=== PATIENT | male | born 1955 | race Caucasian/White ===

== ENCOUNTER 2024-05-16 12:09 | Inpatient (IN) | payer MEDICARE, MEDICAID, SELFPAY ==
[2024-05-16 12:10] VITALS: BMI 23.6
[2024-05-16 12:23] VITALS: BP 176/108; PULSE 112; RESP 19; TEMP 36.6; O2SAT 96
--- NOTE | 2024-05-16 12:23 | XR_ITS ---
EXAMINATION: XR foot comp LT min 3V ORDERING PROVIDER: ERICH Oneill HISTORY: Left foot pain for 18 months TECHNIQUE: 3 radiographs of the left foot were obtained. COMPARISON: 01/12/2024, left foot radiographs. FINDINGS: No acute fracture or dislocation. Soft tissue swelling about the great toe, likely with small amount of subcutaneous emphysema and edema around the forefoot. Punctate densities projecting over the medial forefoot, which may or may not be external to the patient, but at least some of which appear to display off the foot an oblique imaging. There are [id number] degenerative changes in an osteoarthritic pattern. Subtle Monckeberg calcifications are present. There is diffuse bony demineralization, which has increased about the great toe interphalangeal joint. IMPRESSION: Soft tissue swelling centered about the great toe and forefoot, with some questionable areas of subcutaneous emphysema. Worsening demineralization of the great toe at the interphalangeal joint is seen which can be seen with osteomyelitis. Recommend correlation with bone scan versus MR. Punctate densities about the medial mid to forefoot, which may represent radiopaque foreign objects and/or be external to the patient. Given oblique view, favor the latter, though clinical correlation is recommended.
--- NOTE | 2024-05-16 12:24 | EDRME_ITS ---
Rapid Medical Screening Exam [facility] Arrival date/time: 05/16/24 12:09 68-year-old male with no known medical history presents to the emergency room with a chief complaint of a wound to his left great toe that has been going on for the last 3 months. Patient states the wound has progressively gotten worse and his toe is now black and has a foul smell. I have greeted and performed a focused initial assessment of this patient. A comprehensive ED assessment and evaluation of the patient, analysis of all test results, and completion of the medical decision making process will be conducted by additional ED providers. Chief Complaint: Extremity Injury, Lower Vital signs: Vital Signs Temperature 97.8 F 05/16/24 12:23 Pulse Rate 112 H 05/16/24 12:23 Respiratory Rate 19 05/16/24 12:23 Blood Pressure 176/108 H 05/16/24 12:23 Pulse Oximetry (%) 96 05/16/24 12:23 Oxygen Delivery Method Room Air 05/16/24 12:23 Vital signs reviewed by provider: Yes
[2024-05-16 12:57] LABS: Basophils # (Auto) 0.1 Thou/mm3 (0.0-0.2); Basophils % (Auto) 1 % (0-2.5); Eosinophils # (Auto) 0.1 Thou/mm3 (0.0-0.5); Eosinophils % (Auto) 1 % (0-10); Hematocrit 40.6 % (41.0-53.0); Hemoglobin 13.3 g/dL (13.5-16.0); Immature Granulocytes % (Auto) 1 % (0-0); Immature Granulocytes Auto 0.09 Thou/mm3 (0.00-0.00); Lymphocytes # (Auto) 1.9 Thou/mm3 (1.0-4.8); Lymphocytes % (Auto) 11 % (10-50); Mean Corpuscular HGB Conc 32.8 g/dl (31.0-37.0); Mean Corpuscular Hemoglobin 29.8 pg (25.0-35.0); Mean Corpuscular Volume 91 fL (80-100); Monocytes # (Auto) 1.9 Thou/mm3 (0.0-0.8); Monocytes % (Auto) 11 % (0-12); Neutrophils # (Auto) 13.2 Thou/mm3 (1.8-7.7); Neutrophils % (Auto) 76 % (37-80); Nucleated Red Blood Cell % 0 /100 WBC (0); Platelet Count 370 Thou/mm3 (140-440); Red Blood Count 4.46 Miln/mm3 (4.50-5.90); White Blood Count 17.4 Thou/mm3 (3.8-10.6)
[2024-05-16 13:10] LABS: INR 1.1 (0.9-1.3); Partial Thromboplastin Time 29.4 Seconds (22.0-36.0)
[2024-05-16 13:18] LABS: Alanine Aminotransferase 30 U/L (10-49); Albumin, Serum 4.1 gm/dL (3.4-4.8); Albumin/Globulin Ratio 1.1 (1.2-2.2); Alkaline Phosphatase 87 U/L (46-116); Anion Gap 8 (7-16); Aspartate Amino Transferase 35 U/L (0-34); BUN/Creatinine Ratio 9 Ratio (12-20); Bilirubin,Total 0.5 mg/dL (0.3-1.2); Blood Urea Nitrogen 10 mg/dL (9-23); C-Reactive Protein 8.7 mg/dL (0.0-0.9); Calcium 9.6 mg/dL (8.3-10.6); Calcium (Corrected) 9.6 mg/dL (8.5-10.1); Carbon Dioxide 25.8 mMol/L (20.0-31.0); Chloride 103 mMol/L (98-107); Creatinine (Component) 1.1 mg/dL (0.6-1.3); Estimated Creatinine Clearance 61.3 mL/min (>60); Globulin 3.9 gm/dL (2.3-3.5); Glucose 109 mg/dL (74-106); Osmolality,Calculated 273 (275-295); Potassium 4.2 mMol/L (3.4-5.1); Procalcitonin 0.16 ng/ml (0.0-0.49); Sodium 137 mMol/L (136-145); eGFR > 60 See Note
[2024-05-16 13:52] LABS: Sed Rate (ESR) 99 mm/hr (0-20)
[2024-05-16 15:49] LABS: Reflex Lactate? Y
--- NOTE | 2024-05-16 18:22 | PC.NURSE ---
CALLED FROM [facility] AND NO ANSWER
--- NOTE | 2024-05-16 19:22 | PD.EDLOWEX ---
Lower Extremity Injury RME/HPI General Chief Complaint: Extremity Injury, Lower Stated Complaint: Left toe R/O infection Time Seen by Provider: 05/16/24 19:12 Arrival date/time: 05/16/24 12:09 Limitations: no limitations RME / HPI RME / HPI Narrative: DR. RIVAS MAIN ED EVALUATION: 68 year old male presents to the Emergency Department with complaint of a wound to his left great toe that has been going on for the last 3 months. Symptoms are moderate. Patient states the wound and his left great toe is now black with a foul smell onset 1.5 years and worse the last few days. Per daughter, they opened the door and hit his left great toe and then the toe became black with swelling and discharge. No fevers or chills. Both feet are chronically red. PMHx: Looking at his old records, he had a right MCA ischemic infarctin 2020, with residual left hemiparesis. Social Hx: No tobacco, alcohol, or substance use. Related Data Home Medications ?Medication ?Instructions ?Recorded ?Confirmed clopidogrel 75 mg tablet (Plavix) 75 mg PO QDAY 06/14/20 06/14/20 Previous Rx's ?Medication ?Instructions ?Recorded amoxicillin 875 mg-potassium 1 tab PO BID #14 tabs 06/18/20 clavulanate 125 mg tablet (Augmentin) metronidazole 500 mg tablet 500 mg PO Q8H #21 tabs 06/18/20 (Flagyl) meloxicam 7.5 mg tablet 7.5 mg PO QDAY #10 tabs 01/12/24 Allergies Allergy/AdvReac Type Severity Reaction Status Date / Time No Known Allergies Allergy Verified 01/14/22 12:06 Review of Systems Review of Systems Systems Reviewed: All systems reviewed, normal except as documented Narrative Review of Systems: GEN: No fever, no chills, no weight loss EYES: No discharge, no visual changes, no pain HEENT: No ear pain, no congestion, no sore throat PULM: No shortness of breath, no cough, no congestion CV: No chest pain, no dyspnea on exertion, no palpitations GI: No nausea, no vomiting, no diarrhea, no pain, no constipation : No frequency, no urgency and no dysuria MUSC/SKEL: No joint pain, no back pain SKIN: No rash. + wound to his left great toe (see HPI) PSYCH: No hallucinations, no depression HEME/LYMPH: No easy bleeding or bruising tendencies NEURO: No weakness, no headache Past Medical History Past Medical History NEUROLOGIC: Positive Cerebrovascular Accident CARDIAC: Positive Cardiac Disorders and Myocardial Infarction OTHER HISTORY: Positive Falls and Chicken Pox Social History SMOKING STATUS: Current every day smoker SUBSTANCE USE: does not use ALCOHOL: Never ED Exam General Limitations: Present no limitations General appearance: Present alert, in no apparent distress, cachectic and other (in a wheelchair) Head Head exam: Present atraumatic, normocephalic and normal inspection Eye Eye exam: Present normal appearance, PERRL and EOMI ENT ENT exam: Present normal exam, normal oropharynx and mucous membranes moist Neck Neck exam: Present normal inspection, full ROM and trachea midline Chest Chest inspection: Present other (Kyphosis) Respiratory Respiratory exam: Present normal lung sounds bilaterally; Absent respiratory distress or wheezes Cardiovascular Cardiovascular exam: Present regular rate, normal rhythm and normal heart sounds Abdominal Exam Abdominal exam: Present soft and normal bowel sounds Extremities Exam Extremities exam: Present normal inspection and full ROM Expanded Lower Extremity Exam Foot/toe exam: Present other (Left black big toe with minimal drainage; has good anterior tibial pulses; does not have a cold foot; minimum redness to the anterior aspect of the left foot) Back Exam Back exam: Present normal inspection and full ROM Neurological Exam Neurological exam: Present alert, oriented X3 and CN II-XII intact Psychiatric Psychiatric exam: Present normal affect and normal mood Skin Skin exam: Present warm and other (left great toe wound see above under toe exam) Course Course Course Narrative: 1915: Sepsis alert initiated. Orders made at this time are congruent with ED Adult Sepsis Order List. Re-evaluation is to be completed. 2102: Fluids started. 2132: Sepsis reassessment performed consisting of lab review, vitals, physical exam including auscultation of heart, lungs, and visual evaluation of capillary refills, mucosal membranes and extremities. Quality Measures Current suspected stage: sepsis Possible source: wound Blood cultures ordered: yes Antibiotic ordered: Yes Pertinent labs: 05/16/24 05/16/24 12:37 19:45 Lactic Acid 3.0 H mMol/L 3.4 H mMol/L (0.4-2.0) (0.4-2.0) Procalcitonin 0.16 ng/ml (0.0-0.49) sepsis Orders Category Date Time Status Admit to Inpatient Status Routine Admission 05/16/24 22:12 Active Patient Condition Routine Admission 05/16/24 22:12 Ordered Activity as Tolerated Routine Care 05/16/24 22:13 Ordered IV [Insert IV] NOW Care 05/16/24 20:57 Active Notify provider NEEDED Care 05/16/24 22:12 Active Obtain weight X1 Care 05/16/24 22:12 Active Sequential Compression Device QSHIFT Care 05/16/24 22:15 Active Vital Signs, Non-Routine Q4H Care 05/16/24 22:15 Ordered Consult to General Surgery Stat Cons 05/16/24 21:18 Ordered Referral Wound Care Routine Cons 05/16/24 22:17 Active XR foot comp LT min 3V Stat Exams 05/16/24 12:23 Completed Blood Culture (Lab) Stat Lab 05/16/24 19:45 Received CBC AM DRAW Lab 05/17/24 05:00 Ordered CBC AM DRAW Lab 05/18/24 05:00 Ordered CBC AM DRAW Lab 05/19/24 05:00 Ordered CBC Stat Lab 05/16/24 12:37 Completed CMP [Comprehensive Metabolic Panel] Stat Lab 05/16/24 12:37 Completed CRP [C-Reactive Protein] Stat Lab 05/16/24 12:37 Completed Comprehensive Metabolic Panel AM DRAW Lab 05/17/24 05:00 Ordered Comprehensive Metabolic Panel AM DRAW Lab 05/18/24 05:00 Ordered Comprehensive Metabolic Panel AM DRAW Lab 05/19/24 05:00 Ordered ESR [Sed Rate (ESR)] Stat Lab 05/16/24 12:37 Completed Lactate (Lactic Acid) Stat Lab 05/16/24 12:37 Completed Lactate (Lactic Acid) Stat Lab 05/17/24 05:00 Ordered Lactic Acid, 3 HR Stat Lab 05/16/24 19:45 Completed Lipid Panel AM DRAW Lab 05/17/24 05:00 Ordered MRSA Nasal Screen Stat Lab 05/16/24 22:16 Ordered Magnesium AM DRAW Lab 05/17/24 05:00 Ordered Magnesium AM DRAW Lab 05/18/24 05:00 Ordered Magnesium AM DRAW Lab 05/19/24 05:00 Ordered PT [Prothrombin Time with INR] Stat Lab 05/16/24 12:37 Completed PTT [Partial Thromboplastin Time] Stat Lab 05/16/24 12:37 Completed Partial Thromboplastin Time AM DRAW Lab 05/17/24 05:00 Ordered Phosphorous AM DRAW Lab 05/17/24 05:00 Ordered Phosphorous AM DRAW Lab 05/18/24 05:00 Ordered Phosphorous AM DRAW Lab 05/19/24 05:00 Ordered Procalcitonin Stat Lab 05/16/24 12:37 Completed Prothrombin Time with INR AM DRAW Lab 05/17/24 05:00 Ordered Thyroid Stimulating Hormone AM DRAW Lab 05/17/24 05:00 Ordered Acetaminophen Tab [Tylenol Tab] Med 05/16/24 22:12 Active 650 mg PO Q6H PRN Cefepime Inj [Maxipime Inj] 2 gm Med 05/16/24 20:29 Discontinued SODIUM CHLORIDE 0.9% (Popper) [Ns 0.9% (P)] 50 ml IV X1 HYDROcodone*/APAP 5/325 [[place] 5/325] Med 05/16/24 22:12 Active 1 tab PO Q4HR PRN Ondansetron Inj [Zofran Inj] Med 05/16/24 22:12 Active 4 mg IV Q6H PRN Piper/Tazo Inj [Zosyn Inj] 3.375 gm Med 05/17/24 09:00 Pending SODIUM CHLORIDE 0.9% (Popper) [Ns 0.9% (P)] 50 ml IV Q8HR Sodium Chloride 0.9% 1000 ml [Ns] 2,000 ml Med 05/16/24 20:30 Discontinued IV 2,000 mls/hr Vancomycin Pharmacy to Dose Med 05/17/24 09:00 Pending 1 each IV QDAY Vancomycin/Ns 1 gm Ivpb 200 ml Med 05/16/24 20:46 Discontinued IV X1 Code Status Routine Oth 05/16/24 22:12 Ordered Vital Signs Vital signs: Vital Signs Temperature 97.8 F 05/16/24 12:23 Pulse Rate 112 H 05/16/24 12:23 Respiratory Rate 19 05/16/24 12:23 Blood Pressure 176/108 H 05/16/24 12:23 Pulse Oximetry (%) 96 05/16/24 12:23 Oxygen Delivery Method Room Air 05/16/24 12:23 Extremity Injury, Lower MDM Narrative MDM Narrative:: I, Anna Broussard am scribing for and in the presence of Dr. Rivas. Meets sepsis criteria WBC is 17.4 lactate 3.4 C reactive protein is 8.7 Procal is normal Will give Vancomycin and Zosyn and admit Patient data External records reviewed:: [facility] previous records (Reviewed last admission discharge dated 01/12/24, patient admitted for the following: Bilateral foot pain) Clinical information provided by:: patient Social determinants that could affect healthcare access:: none Patient has the following chronic illnesses:: Looking at his old records, he had a right MCA ischemic infarctin 2020, with residual left hemiparesis. How is presenting disease/condition affected by chronic disease/condition?: uneffected by Evaluation data The following diagnostics were reviewed and interpreted by me:: lab results and radiology exam(s) Lab and/or radiology exams considered but not ordered:: none Interpretation Summary: Meets sepsis criteria WBC is 17.4 lactate 3.4 C reactive protein is 8.7 Procal is normal RADIOLOGY Procedure(s): XR foot comp LT min 3V Accession Number(s): [id number] cc: German Calderon MD; Tico Traore; Cherry Mclaughlin-Lilly~ EXAMINATION: XR foot comp LT min 3V ORDERING PROVIDER: ERICH Oneill HISTORY: Left foot pain for 18 months TECHNIQUE: 3 radiographs of the left foot were obtained. COMPARISON: 01/12/2024, left foot radiographs. FINDINGS: No acute fracture or dislocation. Soft tissue swelling about the great toe, likely with small amount of subcutaneous emphysema and edema around the forefoot. Punctate densities projecting over the medial forefoot, which may or may not be external to the patient, but at least some of which appear to display off the foot an oblique imaging. There are [id number] degenerative changes in an osteoarthritic pattern. Subtle Monckeberg calcifications are present. There is diffuse bony demineralization, which has increased about the great toe interphalangeal joint. IMPRESSION: Soft tissue swelling centered about the great toe and forefoot, with some questionable areas of subcutaneous emphysema. Worsening demineralization of the great toe at the interphalangeal joint is seen which can be seen with osteomyelitis. Recommend correlation with bone scan versus MR. Punctate densities about the medial mid to forefoot, which may represent radiopaque foreign objects and/or be external to the patient. Given oblique view, favor the latter, though clinical correlation is recommended. Dictated By: German Calderon MD Medications / Prescriptions Medications or Prescriptions considered but not ordered:: none Medication administrations:: Medication Administration History Acetaminophen (Acetaminophen 325 Mg Tablet) 650 mg PO Q6H PRN PRN Reason: Fever >100 or pain 1-3 Stop: 06/15/24 22:11 Hydrocodone Bitart/Acetaminophen (Hydrocodone/Apap 5/325 Tablet) 1 tab PO Q4HR PRN PRN Reason: PAIN SCALE 4-6 (Moderate Stop: 05/21/24 22:11 Last Admin: 05/16/24 22:36 Dose: 1 tab Documented By: CVL Piperacillin Sod/Tazobactam (Sod 3.375 gm/ Sodium Chloride) 50 mls @ 100 mls/hr IV Q8HR [facility] Stop: 05/23/24 08:59 Ondansetron HCl (Ondansetron Inj 2 Mg/Ml Inj 2 Ml) 4 mg IV Q6H PRN; Protocol PRN Reason: NAUSEA OR VOMITING Stop: 06/15/24 22:11 Pharmacy Consult (Vancomycin Pharmacy To Dose 1 Each Each) 1 each IV QDAY [facility] Stop: 06/16/24 08:59 Discontinued Medications Cefepime HCl 2 gm/ Sodium (Chloride) 50 mls @ 100 mls/hr IV X1 ONE Stop: 05/16/24 20:58 Last Infusion: 05/16/24 21:43 Dose: Infused Documented By: Admin: 05/16/24 21:04 Dose: 100 mls/hr Documented By: CVL Sodium Chloride (Ns) 2,000 mls @ 2,000 mls/hr IV .Q1H ONE Stop: 05/16/24 21:29 Last Infusion: 05/16/24 22:16 Dose: Infused Documented By: Admin: 05/16/24 21:03 Dose: 2,000 mls/hr Documented By: CVL Vancomycin/Sodium Chloride (Vancomycin/Ns 1 Gm Ivpb) 200 mls @ 120 mls/hr IV X1 ONE Stop: 05/16/24 22:25 Last Admin: 05/16/24 21:50 Dose: 120 mls/hr Documented By: CVL see above Consultations Consultation(s) initiated? (list below): Yes Consultation #1 (Physician, Specialty, Details): Discussed test HPI, PMHx, lab, radiology results and/or management with surgeon Dr. Avila. Will consult an admission to the hospitalist. Time: 19:20 Consultation #2 (Physician, Specialty, Details): Discussed test HPI, PMHx, lab, radiology results and/or management with hospitalist. Will admit for further evaluation and management. Accepts patient for admission. Time: 19:30 Diagnosis Extremity Injury, Lower Differential Diagnosis: other (necrosis, cellulitis, sepsis) Most likely diagnosis given after review of the tests above:: Gangrene Cellulitis of left foot Sepsis Admission Indicated Admission indicated?: indicated Admission Request Was there a request for admission?: Yes Admission Attestation Admission request attestation: Discussed case with [] from Hospitalist service regarding admission. Discussed patients ED course, exam findings, labs, and radiology results. The Hospitalist [agrees,declines] to accept the patient for admission. Disposition Plan Disposition Plan: Admit Critical Care Time Critical Care Time Critical Care Time: Yes Total Critical Care Time (min.): 30 Attestation: The high probability of sudden, clinically significant deterioration in the patient?s condition required the highest level of my preparedness to intervene urgently. The services I provided to this patient were to treat and/or prevent clinically significant deterioration. Services included the following: chart data review, reviewing nursing notes and/or old charts, documentation time, change management consultant collaboration regarding findings and treatment options, medication orders and management, direct patient care, vital sign assessments and ordering, interpreting and reviewing diagnostic studies and lab tests. Aggregate critical care time includes only time during which I was engaged in work directly related to the patient?s care, as described above, whether at bedside or elsewhere in the Emergency Department. It did not include time spent performing other reported procedures or the services of residents, students, nurses or physician assistants. Discharge Plan Plan Patient Disposition: Admit Acute Care w/in Hospital Patient condition on transfer: Stable Prescriptions/Referrals Prescriptions/Med Rec: No Action clopidogrel [Plavix] 75 mg Tablet 75 mg PO QDAY amoxicillin-pot clavulanate [Augmentin] 875-125 mg tablet 1 tab PO BID Qty: 14 0RF metronidazole [Flagyl] 500 mg tablet 500 mg PO Q8H Qty: 21 0RF meloxicam 7.5 mg tablet 7.5 mg PO QDAY Qty: 10 0RF Referrals: Cherry Mclaughlin FNP-C [Primary Care Provider] - In 1 week Problem List Clinical Impression: Gangrene, Cellulitis of left foot, Sepsis Patient/Caregiver Discharge Instructions Print Language: Mohawk Stand Alone Forms: [employer] Award Info., Patient Portal Info Letter
[2024-05-16 19:56] LABS: Lactic Acid, 3 HR 3.4 mMol/L (0.4-2.0)
[2024-05-16] MEDS: SODIUM CHLORIDE 0.9% 1000 ML 2,000 ML 2000 ML IV (21:03)
[2024-05-16] MEDS: CEFEPIME INJ 2 GM in SODIUM CHLORIDE 0.9% (Popper) 50 ML IV (21:04)
[2024-05-16 21:12] VITALS: BP 171/100; PULSE 82; RESP 16; TEMP 36.9; O2SAT 96
[2024-05-16] MEDS: VANCOMYCIN/NS 1 GM IVPB 200 ML IV (21:50)
[2024-05-16 22:32] VITALS: BP 154/89; PULSE 88; RESP 18; O2SAT 97
[2024-05-16] MEDS: HYDROcodone/APAP 5/325 TABLET 1 TAB PO (22:36)
--- NOTE | 2024-05-16 23:48 | PC.NURSE ---
REPORT GIVEN TO TOYA VELAZQUEZ AT [facility].
[2024-05-17] VITALS (14 sets, daily range): BP systolic 104–173; BP diastolic 67–105; PULSE 74–91; RESP 9–97; TEMP 36.1–36.8; O2SAT 94–100; BMI 22.1
--- NOTE | 2024-05-17 01:24 | ESHP_ITS ---
<Statement entered by Brody Hernandez MD - 05/17/24 05:34> 68-year-old male with multiple comorbidities including hypertension and CAD with previous CVA who presented to the ER with left black toe. Patient states that he has been having injury to the left toe and patient does follow-up with vascular surgery and underwent CT angiogram with multiple stenotic blood vessels leading up to the legs. In the ER, patient was noted to be septic with differential diagnoses including left wet gangrene osteomyelitis. Also noted to have lactic acidosis for which plan to start IV antibiotic therapy and general surgery was consulted and likely patient will need surgical amputation. I did update the patient about these findings and possibility of needing surgery and at first he was shocked however states that he will think about it.I reviewed above note and agree with findings and plans. I have also personally examined the patient with medicine team and went over assessment and plan with medical team including network intern and resident physician. Documentation for date of: 05/17/24 HPI History of Present Illness History of present illness: Joaquín is a 68 y/o male with PMHx of ? COPD (likely), hypertension, previous CVA, CAD and previous AR, PAD, comes in for an evaluation for left black toe. Patient reports that about a year and a half ago he had an injury to his left toe in which the whole nailbed came off, however has been seeing wound care and a foot surgeon for about a year and a half and has not healed properly. He has seen a vascular surgeon at some point and has gotten a CT angio, however has not had a vascular intervention. About 4 days ago he had just stubbed over a door and it gave him extreme pain. Over the following days the pain started to worsen, the color of his foot started to turn black and started to develop and odorous smell. He denies having other symptoms like this before. He decided to come get his toe checked out. Denies any chest pain, shortness of breath, weakness, fatigue, confusion, nausea, vomiting. He denies being on any blood thinners. He says he has had 2 strokes before, last 1 being 2021 which left him with residual gait defects, however does not take aspirin or any other blood thinners. He says that he does not see a management recruiter and has never had a cardiac stress test before. He denies any recent travel. No other complaints at this time. ED course: Patient arrived to the ED with a temp of 97.8, heart rate 112, respiratory rate 19, blood pressure 176/108, saturating 96% on room air. He was worked up was found to have a white count of 17.4, hemoglobin 13.3, sodium 137, potassium 4.2, BUN/creatinine 10 and 1.1 respectively, lactate 3.0, CRP 8.7, Pro-Sukhi 0.16, ESR 99. Foot x-ray was done and showed soft tissue swelling around the great toe and forefoot with subcutaneous emphysema, demineralization of great toe and possible osteomyelitis. He was given 2 L of normal saline, started on cefepime and vancomycin. Medicine was consulted and patient was made to floors. Past medical history: As above Surgical history: No previous surgeries Allergies: No known allergies Medicines: Baclofen, clonidine, gabapentin Family history: Dad had a heart attack and stroke when he was 87. Some family members have had diabetes and high blood pressure in the family. Social history: Born and raised in [place]. He used to work in construction. Used to be a heavy drinker, however has slowed down since he had a stroke in 2021. Drinks an occasional beer. Smokes about 8 to 10 cigarettes a day, however smoked about a pack for about 40 to 50 years as he used to smoke since he was 9 years old. Denies history of drug use. He lives alone. He is able to walk on his own, however has some family members to help him with walking at times. He does not use a walker Review of Systems Review of Systems Narrative Review of Systems: Constitutional: No fever, chills, fatigue, weakness, weight loss HEENT: No eye pain, vision loss, ear pain, hearing loss, dysphagia, Cardiovascular: No chest pain, palpitations, edema, pain with walking Respiratory: No cough, shortness of breath, wheezing GI: No NVD, abdominal pain, constipation, blood in stool, loss of appetite, heartburn Extremities: No presence of pitting edema MSK: No back pain, R big toe pain, swelling and odorous smell and discoloration (black) Neuro: No dizziness, numbness, weakness, headaches, seizures, tremors Psych: No anxiety, depression Exam Vital Signs Temp Pulse Resp BP Pulse Ox O2 Del Method 98.4 F 88 18 154/89 H 97 Room Air 03/10/25 21:12 05/16/24 22:32 05/16/24 22:32 05/16/24 22:32 05/16/24 22:32 05/16/24 22:32 Narrative Exam General: AAOx3, NAD, bearded male, pleasant, looks much older than he is HEENT: Moist mucous membranes, conjunctiva clear, EOMI, PERRLA, poor dentition Cardiovascular: Possible murmur heard over right upper sternal border radial pulses +2 bilat, RRR Pulmonary: Inspiratory wheezing, no cough GI: No tenderness to light or deep palpitation, no guarding, rigidity, rebound tenderness or distension Extremities: No presence of trace or pitting edema in lower extremities bilaterally, unable to appreciate dorsalis pedis pulses bilaterally MSK: Left big toe completely black, odorous smell, appears to be wet gangrenous, unkempt Neuro: AAOx3, no focal motor or sensory deficits in the UE or LE bilat Psych: Cooperative Results: Labs 05/16/24 12:37 05/16/24 12:37 Labs: Short CBC 05/16/24 Range/Units 12:37 WBC 17.4 H (3.8-10.6) Thou/mm3 Hgb 13.3 L (13.5-16.0) g/dL Hct 40.6 L (41.0-53.0) % Plt Count 370 (140-440) Thou/mm3 BMP 05/16/24 12:37 Sodium 137 Potassium 4.2 Chloride 103 Carbon Dioxide 25.8 BUN 10 Creatinine 1.1 Glucose 109 H Calcium 9.6 Liver Function 05/16/24 Range/Units 12:37 Total Bilirubin 0.5 (0.3-1.2) mg/dL AST 35 H (0-34) U/L ALT 30 (10-49) U/L Alkaline Phosphatase 87 (46-116) U/L Albumin 4.1 (3.4-4.8) gm/dL Quality Measures Quality Measures sepsis Current suspected stage: sepsis Possible source: wound Blood cultures ordered: yes Antibiotic ordered: Yes Advance care planning discussed with:: patient Medications Home Medications and Allergies Home Medications ?Medication ?Instructions ?Recorded ?Confirmed ?Type clopidogrel 75 mg tablet (Plavix) 75 mg PO QDAY 06/14/20 History Allergies Allergy/AdvReac Type Severity Reaction Status Date / Time No Known Allergies Allergy Verified 01/14/22 12:06 Visit Medications Acetaminophen (Acetaminophen 325 Mg Tablet) 650 mg PO Q6H PRN PRN Reason: Fever >100 or pain 1-3 Stop: 06/15/24 22:11 Hydrocodone Bitart/Acetaminophen (Hydrocodone/Apap 5/325 Tablet) 1 tab PO Q4HR PRN PRN Reason: PAIN SCALE 4-6 (Moderate Stop: 05/21/24 22:11 Last Admin: 05/16/24 22:36 Dose: 1 tab Piperacillin Sod/Tazobactam (Sod 3.375 gm/ Sodium Chloride) 50 mls @ 100 mls/hr IV Q8HR CHANTEL Stop: 05/23/24 08:59 Ondansetron HCl (Ondansetron Inj 2 Mg/Ml Inj 2 Ml) 4 mg IV Q6H PRN; Protocol PRN Reason: NAUSEA OR VOMITING Stop: 06/15/24 22:11 Pharmacy Consult (Vancomycin Pharmacy To Dose 1 Each Each) 1 each IV QDAY CHANTEL Stop: 06/16/24 08:59 Discontinued Medications Cefepime HCl 2 gm/ Sodium (Chloride) 50 mls @ 100 mls/hr IV X1 ONE Stop: 05/16/24 20:58 Last Infusion: 05/16/24 21:43 Dose: Infused Sodium Chloride (Ns) 2,000 mls @ 2,000 mls/hr IV .Q1H ONE Stop: 05/16/24 21:29 Last Infusion: 05/16/24 22:16 Dose: Infused Vancomycin/Sodium Chloride (Vancomycin/Ns 1 Gm Ivpb) 200 mls @ 120 mls/hr IV X1 ONE Stop: 05/16/24 22:25 Last Infusion: 05/16/24 23:32 Dose: Infused Assessment & Plan Plan Assessment Joaquín is a 68 y/o male with PMHx of ? COPD (likely), hypertension, previous CVA, CAD and previous AR, PAD was admitted for left wet gangrenous toe. #Sepsis secondary to #Wet gangrene, left toe #? Osteomyelitis # ? History of PAD #Lactic acidosis, type B Sepsis due to tachycardia and elevated white blood cell count ~17, lactate elevated qSOFA: 0 points Spoke with general surgeon who likely believes patient will need TMA At this point patient will need intervention before infection travels and if that happens patient will need further surgical intervention Patient will also need vascular surgeon follow-up outpatient Patient was given 2 L in ER Pt will need pseudomonal coverage including anaerobic coverage Foot x-ray was done and showed soft tissue swelling around the great toe and forefoot with subcutaneous emphysema, demineralization of great toe and possible osteomyelitis Plan: ? General Surgery consulted, appreciate recs ? Zosyn 3.375 g IV every 8 hours and vancomycin ? Wound care referral ? MRSA nares ? Follow-up blood cultures ? [place] for pain control ? Consider further imaging ? Trend lactate #History of CAD #History of [place] #History of CVA Not on aspirin or Plavix at home Not on any statin Plan: ? Follow-up lipid panel ? Consider resuming aspirin #? History of COPD Extensive smoking history Patient refused nicotine patch at this time Patient has not gotten PFTs done Inspiratory wheezing heard Plan: ? DuoNebs every 6 as needed #Health Maintenance Disposition: MedSurg DVT prophylaxis: SCDs GI prophylaxis: None indicated at this time Diet: Cardiac CODE STATUS: Full Patient seen and care discussed with my attending physician, Dr. David Latif, PGY-1
[2024-05-17] MEDS: PIPER/TAZO INJ 3.375 GM in SODIUM CHLORIDE 0.9% (Popper) 50 ML IV (05:45)
[2024-05-17 05:49] LABS: Lactate (Lactic Acid) 1.9 mMol/L (0.4-2.0)
[2024-05-17] MEDS: HYDROcodone/APAP 5/325 TABLET 1 TAB PO (05:56)
[2024-05-17 06:03] LABS: Basophils # (Auto) 0.1 Thou/mm3 (0.0-0.2); Basophils % (Auto) 1 % (0-2.5); Eosinophils # (Auto) 0.4 Thou/mm3 (0.0-0.5); Eosinophils % (Auto) 3 % (0-10); Hematocrit 37.7 % (41.0-53.0); Hemoglobin 12.5 g/dL (13.5-16.0); Immature Granulocytes % (Auto) 0 % (0-0); Immature Granulocytes Auto 0.04 Thou/mm3 (0.00-0.00); Lymphocytes # (Auto) 2.5 Thou/mm3 (1.0-4.8); Lymphocytes % (Auto) 22 % (10-50); Mean Corpuscular HGB Conc 33.2 g/dl (31.0-37.0); Mean Corpuscular Hemoglobin 29.8 pg (25.0-35.0); Mean Corpuscular Volume 90 fL (80-100); Monocytes # (Auto) 1.3 Thou/mm3 (0.0-0.8); Monocytes % (Auto) 12 % (0-12); Neutrophils % (Auto) 62 % (37-80); Nucleated Red Blood Cell % 0 /100 WBC (0); Platelet Count 337 Thou/mm3 (140-440); RDW Standard Deviation 43.5 fL (35.1-43.9); White Blood Count 11.3 Thou/mm3 (3.8-10.6)
[2024-05-17 06:20] LABS: Glucose Estimated Average 108 mg/dL (80-131); Hemoglobin A1C 5.4 % Hgb (4.8-6.0)
[2024-05-17 06:30] LABS: INR 1.1 (0.9-1.3); Partial Thromboplastin Time 28.5 Seconds (22.0-36.0); Prothrombin Time 11.5 Seconds (9.0-12.2)
[2024-05-17 06:34] LABS: Alanine Aminotransferase 29 U/L (10-49); Albumin, Serum 3.5 gm/dL (3.4-4.8); Albumin/Globulin Ratio 1.1 (1.2-2.2); Alkaline Phosphatase 78 U/L (46-116); Anion Gap 8 (7-16); Aspartate Amino Transferase 24 U/L (0-34); BUN/Creatinine Ratio 13 Ratio (12-20); Bilirubin,Total 0.4 mg/dL (0.3-1.2); Blood Urea Nitrogen 12 mg/dL (9-23); Calcium 8.8 mg/dL (8.3-10.6); Calcium (Corrected) 9.2 mg/dL (8.5-10.1); Carbon Dioxide 23.6 mMol/L (20.0-31.0); Cardiac Risk Estimate 2.3 RATIO (4.0-6.7); Chloride 109 mMol/L (98-107); Cholesterol 117 mg/dL (132-200); Creatinine (Component) 0.9 mg/dL (0.6-1.3); Estimated Creatinine Clearance 72.7 mL/min (>60); Globulin 3.3 gm/dL (2.3-3.5); Glucose 74 mg/dL (74-106); HDL Cholesterol 50 mg/dL (40-60); LDL Cholesterol,Calculated 53 mg/dL (0-130); Magnesium 1.7 mg/dL (1.6-2.6); Osmolality,Calculated 279 (275-295); Phosphorous 2.8 mg/dL (2.4-5.1); Potassium 4.3 mMol/L (3.4-5.1); Sodium 141 mMol/L (136-145); Total Protein 6.8 gm/dL (5.7-8.2); Triglycerides 71 mg/dL (30-150); eGFR > 60 See Note
--- NOTE | 2024-05-17 08:47 | ESPR_ITS ---
<Statement entered by Jewels Raza MD - 05/18/24 07:33> Patient was seen and examined by me personally. I have directly supervised and reviewed documentation by the team resident and agree with its findings with any exceptions or additional findings as below. Plan of care was discussed with the attending, Dr. Kennedy. Jewels Raza, PGY-2 Documentation for date of: 05/17/24 Subjective Subjective Interval history: Patient was seen and examined by the bedside. No acute overnight events. Patient reporting feeling chills. Patient is lying in bed, resting. Surgeon Dr. Avila is consulted, left toe amputation is planned for today. Exam Vital Signs Temp Pulse Resp BP Pulse Ox O2 Del Method 97.0 F 82 9 L 169/105 H 95 Room Air 05/17/24 04:00 05/17/24 04:00 05/17/24 04:00 05/17/24 04:00 05/17/24 04:00 05/17/24 04:00 Narrative Exam Physical Exam General: Awake and in no acute distress. Conversational and non-toxic appearing. HEENT: Normocephalic, atraumatic, mucous membranes moist. Heart: Regular rate and rhythm, no murmurs. Lungs: Clear to auscultation with no wheezing or crackles. Abdomen: Soft, nondistended, nontender, positive bowel sounds. ?No guarding or rebound tenderness. Neurologic: Alert and oriented x3, no gross neurological deficit, and patient able to move all 4 extremities. Extremities: Left toe is blck, gangrenous, foul smelling. Skin: No rash or ecchymoses. Objective Labs 05/18/24 04:26 05/18/24 04:26 Labs: Laboratory Results - last 24 hr 05/16/24 05/16/24 05/17/24 12:37 19:45 04:54 WBC 17.4 H 11.3 H D RBC 4.46 L 4.20 L Hgb 13.3 L 12.5 L Hct 40.6 L 37.7 L MCV 91 90 MCH 29.8 29.8 MCHC 32.8 33.2 RDW Std Deviation 45.0 H 43.5 Plt Count 370 337 D Neut % (Auto) 76 62 Lymph % (Auto) 11 22 [place] % (Auto) 11 12 Eos % (Auto) 1 3 Baso % (Auto) 1 1 Neut # (Auto) 13.2 H 7.0 Lymph # (Auto) 1.9 2.5 [place] # (Auto) 1.9 H 1.3 H Eos # (Auto) 0.1 0.4 Baso # (Auto) 0.1 0.1 Immature Gran # (Auto) 0.09 H 0.04 H Absolute Nucleated RBC 0.00 0.00 Immature Gran % 1 H 0 Nucleated RBC % 0 0 ESR 99 H PT 12.0 11.5 INR 1.1 1.1 APTT 29.4 28.5 Sodium 137 141 Potassium 4.2 4.3 Chloride 103 109 H Carbon Dioxide 25.8 23.6 Anion Gap 8 8 BUN 10 12 Creatinine 1.1 0.9 Estim Creat Clear Calc 61.3 72.7 eGFR > 60 > 60 BUN/Creatinine Ratio 9 L 13 Glucose [address] Glu mg/dL 108 Hemoglobin A1c 5.4 Calculated Osmolality 273 L 279 Lactic Acid 3.0 H 3.4 H 1.9 Calcium 9.6 8.8 Corrected Calcium 9.6 9.2 Phosphorus 2.8 Magnesium 1.7 Total Bilirubin 0.5 0.4 AST 35 H 24 ALT 30 29 Alkaline Phosphatase 87 78 C-Reactive Prot, Quant 8.7 H Total Protein 8.0 6.8 Albumin 4.1 3.5 D Globulin 3.9 H 3.3 Albumin/Globulin Ratio 1.1 L 1.1 L Triglycerides 71 Cholesterol 117 L LDL Cholesterol, Calc 53 HDL Cholesterol 50 Cholesterol/HDL Ratio 2.3 L Procalcitonin 0.16 TSH 2.80 Quality Measures Quality Measures sepsis Current suspected stage: sepsis Possible source: wound Blood cultures ordered: yes Antibiotic ordered: Yes Advance care planning discussed with:: other Assessment & Plan Assessment Current Active Medications: Generic Name Dose Route Start Last Admin Trade Name Freq PRN Reason Stop Dose Admin Acetaminophen 650 mg 05/16/24 22:12 Acetaminophen 325 Mg Tablet PO 06/15/24 22:11 Q6H PRN Fever >100 or pain 1-3 Hydrocodone Bitart/Acetaminophen 1 tab 05/16/24 22:12 05/17/24 05:56 Hydrocodone/Apap 5/325 Tablet PO 05/21/24 22:11 1 tab Q4HR PRN Administration PAIN SCALE 4-6 (Moderate Albuterol/Ipratropium 3 ml 05/17/24 01:35 Albuterol/Ipratropium (Duoneb) Rt [place] 3 Ml Nebu INH 06/16/24 01:34 Q6HRRT PRN SHORTNESS OF BREATH OR WHEEZE Piperacillin Sod/Tazobactam 50 mls @ 12.5 mls/hr 05/17/24 06:00 05/17/24 05:45 Sod 3.375 gm/ Sodium Chloride IV 05/17/24 12:00 12.5 mls/hr Q8HR CHANTEL Administration Vancomycin/Sodium Chloride 750 mg in 150 mls @ 120 mls/hr 05/17/24 10:00 Vancomycin/Ns 750 Mg Ivpb IV 05/24/24 09:59 Q12H CHANTEL Piperacillin/Tazobactam/Dextrose 50 mls @ 12.5 mls/hr 05/17/24 14:00 Zosyn IV 05/24/24 05:59 Q8HR CHANTEL Ondansetron HCl 4 mg 05/16/24 22:12 Ondansetron Inj 2 Mg/Ml Inj 2 Ml IV 06/15/24 22:11 Q6H PRN NAUSEA OR VOMITING Protocol Pharmacy Consult 1 each 05/17/24 09:00 Vancomycin Pharmacy To Dose 1 Each Each IV 06/16/24 08:59 QDAY PRN PROTOCOL Plan #Sepsis secondary to #Wet gangrene, left toe #? Osteomyelitis # ? History of PAD #Lactic acidosis, type B Sepsis due to tachycardia and elevated white blood cell count ~17, lactate elevated qSOFA: 0 points Spoke with general surgeon who likely believes patient will need TMA At this point patient will need intervention before infection travels and if that happens patient will need further surgical intervention Patient will also need vascular surgeon follow-up outpatient Patient was given 2 L in ER Pt will need pseudomonal coverage including anaerobic coverage Foot x-ray was done and showed soft tissue swelling around the great toe and forefoot with subcutaneous emphysema, demineralization of great toe and possible osteomyelitis Plan: ? General Surgery consulted, appreciate recs ? Zosyn 3.375 g IV every 8 hours and vancomycin ? Wound care referral ? MRSA nares ? Follow-up blood cultures ? [place] for pain control ? Consider further imaging ? Trend lactate #History of CAD #History of [place] #History of CVA Not on aspirin or Plavix at home Not on any statin Moderate- to high-intensity statin recommended because 10-year risk >7.5% Plan: ? Follow-up lipid panel ? Aspirin 81 mg qday - #? History of COPD Extensive smoking history Patient refused nicotine patch at this time Patient has not gotten PFTs done Inspiratory wheezing heard Plan: ? DuoNebs every 6 as needed #Health Maintenance Disposition: MedSurg DVT prophylaxis: SCDs GI prophylaxis: None indicated at this time Diet: Cardiac CODE STATUS: Full Patient seen and care discussed with my attending physician, Dr. David Latif, PGY-1 Attending Provider Attestation/Addendum I reviewed labs, imaging, EKG, home medications and prior available records. Face to face evaluation was performed by me. I have personally examined the patient and discussed assessment and plan with the IM team. I reviewed the resident note and agree with the plan with exceptions as below. Dry gangrene of left toe Leukocytosis Uncontrolled hypertension Continue IV vancomycin/Zosyn Consulted general surgery: N.p.o. for amputation Management of pain as needed Trend WBC: Downtrending Started losartan 50 mg. Monitor BP
[2024-05-17] MEDS: LOSARTAN POTASSIUM 25 MG TABLET 50 MG PO (10:14)
[2024-05-17] MEDS: VANCOMYCIN/NS 750 MG IVPB 750 MG/150 ML BAG 120 MG IV (10:15)
--- NOTE | 2024-05-17 12:36 | PD.SURCONS ---
HPI Consult details History of present illness: 68M with HTN, CVA with RUQ weakness, CAD with previous ID who presented with left first toe gangrene. Pt states a few days ago he stubbed the toe and then noticed it darkened and became malodorous with increasing pain. In ER pt was found to have WBC 17 and xray findings of possible osteomyelitis PMH: HTN, CVA, CAD PSHx: Pt reports having an angio of the LLE which he was told was negative for blockages Meds: No antiplt or anticoagulation Allergies: NKDA Social hx: smokes 8-10 cigarettes per day, walks without assistive device Review of Systems Review of Systems ROS Unobtainable: All systems reviewed & no additional complaints except as documented Meds Home Medications and Allergies Home Medications ?Medication ?Instructions ?Recorded ?Confirmed ?Type clopidogrel 75 mg tablet (Plavix) 75 mg PO QDAY 06/14/20 06/14/20 History Allergies Allergy/AdvReac Type Severity Reaction Status Date / Time No Known Allergies Allergy Verified 01/14/22 12:06 Exam Vital Signs Temp Pulse Resp BP Pulse Ox O2 Del Method 97.0 F 80 18 173/78 H 95 Room Air 05/17/24 08:00 05/17/24 10:14 05/17/24 08:00 05/17/24 10:14 05/17/24 08:00 05/17/24 08:00 Constitutional Constitutional: no acute distress Routine Respiratory Exam Respiratory: Present no resp distress Routine Extremities Exam Comments: left foot warm, first toe black circumferentially with ulceration on the dorsal surface Results Results: Laboratory Laboratory results: results reviewed Results: Imaging Imaging narrative: Foot xray reviewed Assessment & Plan Plan 68M with HTN, CVA, CAD presenting with left first toe gangrene. I recommended amputation and explained risks/benefits, pt expressed understanding and agrees to proceed
--- NOTE | 2024-05-17 13:57 | PD.SUROPNT ---
Date of Procedure 05/17/24 Pre Op Diagnosis Left first toe gangrene Post Op Diagnosis Same Procedure Amputation of left first toe Findings Gangrene of left first toe Procedure Description After discussion of risks and benefits, patient was brought to the operating room, an SCD was placed on the right and general anesthesia was induced. He was prepped and draped in the usual sterile fashion and is receiving scheduled antibiotics. After timeout the left first toe was addressed with electrocautery through the necrotic skin at the base of the toe. The toe was transected through the proximal phalanx with electrocautery and the remaining proximal phalanx was noted to be necrotic and malodorous. It was removed with a rongeur and the base was smoothed with a smoothing tool. The necrotic skin was sharply debrided with scissors. There was no bleeding. The wound was irrigated with a combination of Betadine, hydrogen peroxide and saline. The skin around the first metatarsal was loosely approximated with 2-0 nylon sutures in a vertical mattress fashion. The incision was covered with Vaseline gauze, fluffs and a Kerlix wrap. Patient was extubated and brought to PACU in stable condition Pathology / specimen Other (Left first toe) Estimated Blood Loss 0 Surgeon Aziza Avila MD Surgical Staff Operation Date: 05/17/24 13:15 <No data on this case meets the specified criteria>
--- NOTE | 2024-05-17 14:03 | SUR.PHASEI ---
pt received from OR in recovery bay 1. pt obtunded, breathing unlabored on oxymask 8l, oral airway in place. v/s stable. pt dressing to left foot cdi. report received from Smith VELAZQUEZ and Nel FLOYD.
[2024-05-17] MEDS: ONDANSETRON INJ 2 MG/ML INJ 2 ML 4 MG IV (14:32)
[2024-05-17] MEDS: fentaNYL CIT INJ 50 mCg/ML AMP 2ML IV ×2 (14:36→14:51)
--- NOTE | 2024-05-17 14:55 | SUR.PHASEI ---
pt awake and alert, breathing unlabored on 2l nc. v/s stable. pt dressing to left foot cdi. report called to Kristie VELAZQUEZ. pt will be transferred to room at this time.
--- NOTE | 2024-05-17 15:21 | PC.NURSE ---
Pt returned from OR will resume care
--- NOTE | 2024-05-17 17:34 | PC.NURSE ---
Received report from Kristie VELAZQUEZ 16:55PM.
[2024-05-17] MEDS: VANCOMYCIN/NS 750 MG IVPB 750 MG/150 ML BAG 1210 MG IV (22:15)
[2024-05-17] MEDS: ATORVASTATIN CALCIUM 20 MG TABLET 40 MG PO (22:19)
[2024-05-17] MEDS: MORPHINE SULF INJ 10 MG/ML VIAL 2 MG IVP (22:27)
[2024-05-17] MEDS: PIPER/TAZO 3.375 GM PREMIX 50 ML IV (23:46)
[2024-05-18] VITALS (8 sets, daily range): BP systolic 112–119; BP diastolic 53–77; PULSE 79–88; RESP 16–99; TEMP 36.3–37.2; O2SAT 94–99
[2024-05-18] MEDS: HYDROcodone/APAP 5/325 TABLET 1 TAB PO ×2 (03:22→07:52)
[2024-05-18] MEDS: PIPER/TAZO 3.375 GM PREMIX 50 ML IV ×2 (05:30→14:14)
[2024-05-18 05:57] LABS: Basophils % (Auto) 0 % (0-2.5); Eosinophils % (Auto) 0 % (0-10); Hematocrit 36.9 % (41.0-53.0); Hemoglobin 12.1 g/dL (13.5-16.0); Immature Granulocytes % (Auto) 1 % (0-0); Immature Granulocytes Auto 0.07 Thou/mm3 (0.00-0.00); Lymphocytes # (Auto) 0.8 Thou/mm3 (1.0-4.8); Lymphocytes % (Auto) 9 % (10-50); Mean Corpuscular HGB Conc 32.8 g/dl (31.0-37.0); Mean Corpuscular Hemoglobin 29.4 pg (25.0-35.0); Mean Corpuscular Volume 90 fL (80-100); Monocytes # (Auto) 0.6 Thou/mm3 (0.0-0.8); Monocytes % (Auto) 7 % (0-12); Neutrophils # (Auto) 7.2 Thou/mm3 (1.8-7.7); Neutrophils % (Auto) 83 % (37-80); Nucleated Red Blood Cell % 0 /100 WBC (0); Platelet Count 346 Thou/mm3 (140-440); Red Blood Count 4.11 Miln/mm3 (4.50-5.90); White Blood Count 8.7 Thou/mm3 (3.8-10.6)
[2024-05-18 06:24] LABS: Alanine Aminotransferase 27 U/L (10-49); Albumin, Serum 3.5 gm/dL (3.4-4.8); Albumin/Globulin Ratio 1.1 (1.2-2.2); Alkaline Phosphatase 80 U/L (46-116); Anion Gap 10 (7-16); Aspartate Amino Transferase 17 U/L (0-34); BUN/Creatinine Ratio 15 Ratio (12-20); Bilirubin,Total 0.5 mg/dL (0.3-1.2); Blood Urea Nitrogen 17 mg/dL (9-23); Calcium (Corrected) 9.4 mg/dL (8.5-10.1); Carbon Dioxide 23.7 mMol/L (20.0-31.0); Chloride 104 mMol/L (98-107); Creatinine (Component) 1.1 mg/dL (0.6-1.3); Estimated Creatinine Clearance 59.5 mL/min (>60); Globulin 3.1 gm/dL (2.3-3.5); Glucose 143 mg/dL (74-106); Magnesium 1.7 mg/dL (1.6-2.6); Osmolality,Calculated 279 (275-295); Phosphorous 3.4 mg/dL (2.4-5.1); Potassium 4.5 mMol/L (3.4-5.1); Sodium 138 mMol/L (136-145); Total Protein 6.6 gm/dL (5.7-8.2); eGFR > 60 See Note
[2024-05-18] MEDS: LOSARTAN POTASSIUM 25 MG TABLET 50 MG PO (07:52)
--- NOTE | 2024-05-18 09:06 | PC.SS ---
SS informed by bedside nurse concerns regarding patients living conditions. SS met with pt to discuss concerns/safety insure that pt might possess. Pt denied any safety issues or concerns. Chart review indicates no documentation identifying any residential concerns pertaining to pt. SS met with the residential team and no concerns voiced by residential team. SS contacted [facility] staff, Harley who indicated pt discontinued [facility] 01-11-24. No concerns noted by [facility]. Pt has access to basic utilizes and provisions.
[2024-05-18 09:42] LABS: Vancomycin,Trough 16.3 mcg/mL (5.0-10.0)
[2024-05-18] MEDS: MORPHINE SULF INJ 10 MG/ML VIAL 2 MG IVP (10:16)
--- NOTE | 2024-05-18 10:19 | PD.SURPROG ---
Documentation for date of: 05/18/24 Subjective Subjective Brief History: 68M with HTN, CVA with RUQ weakness, CAD with previous DC who presented with left first toe gangrene. Pt states a few days ago he stubbed the toe and then noticed it darkened and became malodorous with increasing pain. In ER pt was found to have WBC 17 and xray findings of possible osteomyelitis PMH: HTN, CVA, CAD PSHx: Pt reports having an angio of the LLE which he was told was negative for blockages Meds: No antiplt or anticoagulation Allergies: NKDA Social hx: smokes 8-10 cigarettes per day, walks without assistive device Narrative: Reporting throbbing pain at the foot, WBC normal, remaining afebrile Exam Vital Signs Temp Pulse Resp BP Pulse Ox O2 Del Method O2 Flow Rate 97.8 F 85 16 114/73 99 Nasal Cannula 1 05/18/24 08:00 05/18/24 08:00 05/18/24 08:00 05/18/24 08:00 05/18/24 08:00 05/18/24 08:00 05/18/24 08:00 Constitutional Constitutional: no acute distress Routine Respiratory Exam Respiratory: Present no resp distress Routine Extremities Exam Comments: left first toe wound with dusky skin likely related to sutures which I removed today, bed of wound has beefy red granulation tissue with no bleeding Results Results: Laboratory Laboratory results: results reviewed Assessment & Plan Plan 68M with HTN, CVA, CAD presenting with left first toe gangrene s/p amputation 05/17/24, recovering well OK for dc from my standpoint to follow up at [facility] Procedures Amputation of left first toe
[2024-05-18] MEDS: VANCOMYCIN/NS 750 MG IVPB 750 MG/150 ML BAG 1210 MG IV (10:40)
--- NOTE | 2024-05-18 10:50 | PC.SS ---
SS met with patient regarding his d/c plan.? Pt is alert/oriented.? Pt was admitted for Gangrene of Toe.? Pt confirmed demographic and contact information is correct on facesheet.? Pt resides with his nephew.? Pt ambulates using a front wheel walker at home.? Pt requires assistance with ADLs.? ?Pt named his niece, Vi Gross medical decision maker if he is unable. SS provided pt with verbal d/c options for home or SNF.? Pt refused SNF.? ?Pt states he has followed up with [facility] and his request is to continue with them.? pt states he also follows up at [facility].? Patient's niece, Vi is his [facility] caregiver.? Vi states she visits the patient through out the day.? Pt states he was opening a door, hit his toe, and after few days his toe became worse.? Pt states he is not diabetic and does not participate in dialysis.? Pt states his next appointment with PCP is Friday, May 24, 2024.? ?? D/C plan:? Return home with [facility] Next of Kin:? Vi Gross, niece, phone# [phone] PCP:? Dr. Cherry Mclaughlin? Address:? Correct on facesheet
--- NOTE | 2024-05-18 15:07 | ESDS_ITS ---
<Statement entered by Jewels Raza MD - 05/19/24 07:46> Patient was seen and examined by me personally. I have reviewed the below documentation by the team resident and agree with its findings with any exceptions as below. Discharge plan was discussed with the attending, Dr. Kennedy. Patient will be discharged with home health and instructed to follow up at [facility]. Jewels Raza, PGY-2 Planned Discharge Date 05/18/24 DS: Providers Provider Date of admission: 05/16/24 22:12 Primary care physician: AUDREY Jim Admitting Provider: Brody Hernandez MD Attending Provider on Admission: Seamus Kennedy MD Consults: 05/16/24 21:18 Consult to General Surgery Stat Comment: possible wet gangrene of toe Consulting Provider: Aziza Avila 05/16/24 22:17 Referral Wound Care Routine Comment: 05/17/24 04:29 Referral Registered Dietitian Stat Comment: 05/18/24 10:52 Referral Physical Therapy Routine Comment: Physician Instructions: Attending Provider on DC: Tessie Cuevas MD Discharging Provider: Tessie Cuevas MD DS: Diagnosis Problem List Completed Was Problem List Reviewed/Reconciled?: Yes Hospital Course Hospital Course Hospital course: The patient is a 68-year-old male with a previous medical history of CAD status post [place], PAD, hypertension, history of CVA who came to the ED due to blackening of his left big toe. He reported hitting his toe a few days ago and after that he started to have pain, discoloration and foul smell. In the ED he was septic, foot xray showed soft tissue swelling around the great toe and forefoot with subcutanous emphysema. He was started on vancomycin and Zosyn. Dr. Avila surgeon was consulted and performed left first tor amputation 05/18/23. Operation went well, patient condition has improved and he was seen at the bedside and was medically cleared for discharge. Hospital diagnoses: #Sepsis, resolved #Left first toe gangrene s/p amputation 05/17/24 #History of PAD #Lactic acidosis, type B, resolved #History of CAD #History of [place] #History of CVA Discharge recommendations: - Follow up with your PCP in 1-2 weeks - Follow up with Wound Care center - Take Clindamycin 300 mg three times day for 7 days - Start Gabapentin 300 mg once a day, you can uptitrate to twice a day and then three times a day - Take Plavix 75 mg daily - If your condition worsens, call 911 or come to the ED Plan of care discussed with attending Dr. Kennedy, PGY-[address] Raza and PGY-[address] Goldman. Tessie Cuevas MD, PGY 1. Time Spent with Patient Time attestation: Total time spent providing and/or coordinating discharge services: Home Health Home Health Referral Orders: 05/17/24 15:30 Home Health Referral Routine Reason For Exam: would of left foot, home PT Home-Bound The patient must either because of illness or injury, need the aid of supportive devices such as crutches, canes, wheelchairs, and walkers; the use of special transportation; or the assistance of another person in order to leave their place of residence; OR have a condition such that leaving his or her home is medically contraindicated. In addition, the patient also meets the following criteria: patient is normally unable to leave the home and leaving home requires considerable taxing effort. Addendum to Home Health Certification Practitioner's Certification: I certify that the patient has been under my care in the hospital and the care of attending physician (see below). We had a [id number] encounter on (see date below). My clinical findings indicate that the patient is home bound per the above criteria and the Home Health Services noted in these orders are medically necessary. The primary reason for the [id number] encounter is related to the fact that the patient requires home health services. Date Certifying Bxlf-ib-Fadg Physician Encounter: 05/17/24 Physician's Name who will Assume Oversight for Services: Cherry Mclaughlin Physician's Phone No.who will Assume Oversight for Service: SMASH [employer]ER - Community Resources: Yes PT to Evaluate: Yes PT to evaluate and provide a treatmnet plan to increase patient's mobility and strength. Wound Care: Yes Home Health RN - Wound Care Order: See wound care note IV Therapy: No RN Safety Evaluation: Yes RN to evaluate and create a plan of care that will produce positive outcomes. Palliative Treatment: No Palliative treatment and evaluate the need for hospice. Home Health Aide - Personal Care: Yes Home Health Aide to assist with any ADL's. Exam Vital Signs Temp Pulse Resp BP Pulse Ox O2 Del Method O2 Flow Rate 99 F 86 20 112/53 L 98 Room Air 1 05/18/24 12:00 05/18/24 12:27 05/18/24 12:27 05/18/24 12:05/18/24 12:05/18/24 12:05/18/24 08:00 Narrative Exam Physical Exam General: Awake and in no acute distress. Conversational and non-toxic appearing. HEENT: Normocephalic, atraumatic, mucous membranes moist. Heart: Regular rate and rhythm, no murmurs. Lungs: Clear to auscultation with no wheezing or crackles. Abdomen: Soft, nondistended, nontender, positive bowel sounds. ?No guarding or rebound tenderness. Neurologic: Alert and oriented x3, no gross neurological deficit, and patient able to move all 4 extremities. Extremities: Left foot is covered with fresh gauze. Pedal arterial pulses are weak bilaterally. Skin: No rash or ecchymoses. Discharge Plan Plan Patient Disposition: Home w/HOME HEALTH Patient condition on transfer: Stable Care Plan Goals: - Follow up with your PCP in 1-2 weeks - Follow up with Wound Care center - Take Clindamycin 300 mg three times day for 7 days - Start Gabapentin 300 mg once a day, you can uptitrate to twice a day and then three times a day - Take Plavix 75 mg daily - If your condition worsens, call 911 or come to the ED Prescriptions/Referrals Prescriptions/Med Rec: New clindamycin HCl 300 mg capsule 300 mg PO TID 7 Days Qty: 21 0RF gabapentin 300 mg capsule 300 mg PO QDAY 30 Days Qty: 30 0RF Rx Instructions: Start with 300 mg once a day, can uptitrate to twice a day and then three times a day. Continued clopidogrel [Plavix] 75 mg Tablet 75 mg PO QDAY 30 Days Qty: 30 0RF Discontinued amoxicillin-pot clavulanate [Augmentin] 875-125 mg tablet 1 tab PO BID Qty: 14 0RF metronidazole [Flagyl] 500 mg tablet 500 mg PO Q8H Qty: 21 0RF meloxicam 7.5 mg tablet 7.5 mg PO QDAY Qty: 10 0RF Referrals: Cherry Mclaughlin FNP-C [Primary Care Provider] - Patient/Caregiver Discharge Instructions Education Materials: Amputation What to Expect After, Preventing Surgical Site Infections Print Language: Czech Stand Alone Forms: Sofy Award Info., Patient Portal Info Letter Discharge Order Discharge Orders: Discharge (Routine); Ordered 05/18/24 Ordered By: Jewels Raza Quality Discharge Quality Measures VTE prophylaxis Attestestation Attestation I reviewed labs, imaging, EKG, home medications and prior available records. Face to face evaluation was performed by me. I have personally examined the patient and discussed assessment and plan with the IM team. I reviewed the resident note and agree with the plan with exceptions as below. Dry gangrene of left toe, status post amputation Leukocytosis, downtrending Elevated BP, likely in the setting of pain Will discharge on p.o. clindamycin for 1 week Status post great toe amputation. Discussed with surgery: Okay to discharge. Continue wound care upon discharge. Outpatient follow-up. Okay to shower Management of pain as needed Trend WBC: Downtrending Continue gabapentin for pain management Time spent is 40 minutes. More than 50% of the time was spent on patient education and coordination of care.
--- NOTE | 2024-05-18 15:37 | PC.PT ---
Patient is safe to ambulate to the bathroom using a FWW and 1 staff assist. RN made aware.
--- NOTE | 2024-05-18 16:01 | PC.CC ---
Addendum entered by Kristin Azar RN 05/18/24 16:27: Referral sent to [facility] Original Note: Pt entered into [facility], pt has history with [facility] in January, pt also requests [facility]
--- NOTE | 2024-05-18 16:15 | PC.SS ---
SS spoke to transfer nurse, Kristin and informed her patient's choice is [facility] and pt has d/c home. SS faxed [facility] referral to [facility] at 4:07pm and SS also sent referral by [facility] Fax at 4:15pm. SS sent patient's facesheet, wound care referral, and wound care notes. SS spoke to maintenance representative at [facility] and informed her to contact pt for an appointment due to pt already being d/c home. SS called patient's niece, Vi and provided her with [facility] Clinic's phone # and [facility]'s phone # to follow up.
--- NOTE | 2024-05-19 07:22 | PC.CC ---
[facility] accepted the pt. Booked [facility]. Start of care date is 05/19/2024.
== END 2024-05-18 15:36 | disposition home health service (06) | DRG 854 ==
LOC: SERX 22:40 → SERHOLD 23:33 → S3SX 05-17 00:11
PROVIDERS: Nurse Practitioner Family; Surgery; Admitting Provider Internal Medicine; Emergency Provider Emergency Medicine; PCP Nurse Practitioner Family; Visit Provider Student in an Organized Health Care Education/Training Program
PROC: 0Y6Q0Z0 Detachment at Left 1st Toe, Complete, Open Approach (ICD-10-PCS; CPT 28820; principal; 2024-05-17 13:00)
DX: A41.9 Sepsis, unspecified organism (principal); E87.20 Acidosis, unspecified; M86.172 Other acute osteomyelitis, left ankle and foot; I96 Gangrene, not elsewhere classified; I10 Essential (primary) hypertension; I25.10 Atherosclerotic heart disease of native coronary artery without angina pectoris; F17.210 Nicotine dependence, cigarettes, uncomplicated; Z86.73 Personal history of transient ischemic attack (TIA), and cerebral infarction without residual deficits; I25.2 Old myocardial infarction; W22.8XXA Striking against or struck by other objects, initial encounter
CPT/HCPCS: 36415; 73630; 80053; 80061; 80202; 83036; 83605; 83735; 84100; 84145; 84443; 85025; 85610; 85652; 85730; 86140; 87040; 87081; 93225; 96365; 96366; 96367; 97162; 99291; A4217; A4649; J0692; J1100; J2270; J2371; J2405; J2543; J2704; J3010; J3370; J3490; J7030; J7050; A9270

== ENCOUNTER 2024-05-21 10:21 | Emergency (ER) | payer MEDICARE, MEDICAID, SELFPAY ==
[2024-05-21 11:23] VITALS: BP 125/67; PULSE 66; RESP 16; TEMP 36.8; O2SAT 98; BMI 23.5
--- NOTE | 2024-05-21 11:34 | XR_ITS ---
Examination: Foot, left, 3 views Technique: AP, oblique, lateral views foot, 3 views Date and time of exam: 05/21/2024, 11:49 AM COMPARISON: 05/16/2024 Indication, left foot plain. FINDINGS: Interval amputation of the first digit distal phalanx and distal portion of the first digit digit proximal phalanx with associated soft tissue defect. No evidence of foreign body. No other bony abnormality seen. IMPRESSION: Interval first digit amputation as above. No other focal abnormality seen
--- NOTE | 2024-05-21 11:34 | XR_ITS ---
Exam: Chest 1 view, AP Date and time of exam: 05/21/2024, 11:46 AM INDICATION: Dizziness COMPARISON: 06/17/2020 Findings: Normal heart size. No mediastinal adenopathy. No acute fracture No pulmonary edema or pneumonia. Impression: No active disease.
--- NOTE | 2024-05-21 11:35 | PD.EDRME ---
Rapid Medical Screening Exam E Arrival date/time: 05/21/24 10:21 This is a 68-year-old male that comes in with complaints of recent left great toe amputation approximately 3 days ago. Per patient daughter wound looks like it is worsening. Patient also complains of dizziness and lightheadedness. Patient denies chest pain shortness of breath. Patient has a history of gangrene to his left great toe. I have greeted and performed a focused initial assessment of this patient. Initial appropriate labs ordered at this time. A comprehensive ED assessment and evaluation of the patient and analysis of all test and completion of medical decision making process will be conducted by additional ED provider. Chief Complaint: Fever Time Seen by Provider: 05/21/24 11:34 Vital signs: Vital Signs Temperature 98.2 F 05/21/24 11:23 Pulse Rate 66 05/21/24 11:23 Respiratory Rate 16 05/21/24 11:23 Blood Pressure 125/67 05/21/24 11:23 Pulse Oximetry (%) 98 05/21/24 11:23 Oxygen Delivery Method Room Air 05/21/24 11:23
[2024-05-21 12:24] LABS: Basophils # (Auto) 0.1 Thou/mm3 (0.0-0.2); Basophils % (Auto) 1 % (0-2.5); Eosinophils # (Auto) 0.1 Thou/mm3 (0.0-0.5); Eosinophils % (Auto) 1 % (0-10); Hemoglobin 14.6 g/dL (13.5-16.0); Immature Granulocytes % (Auto) 1 % (0-0); Immature Granulocytes Auto 0.05 Thou/mm3 (0.00-0.00); Lymphocytes # (Auto) 1.3 Thou/mm3 (1.0-4.8); Lymphocytes % (Auto) 13 % (10-50); Mean Corpuscular HGB Conc 32.4 g/dl (31.0-37.0); Mean Corpuscular Hemoglobin 29.3 pg (25.0-35.0); Mean Corpuscular Volume 90 fL (80-100); Monocytes # (Auto) 1.8 Thou/mm3 (0.0-0.8); Monocytes % (Auto) 19 % (0-12); Neutrophils # (Auto) 6.3 Thou/mm3 (1.8-7.7); Neutrophils % (Auto) 66 % (37-80); Nucleated Red Blood Cell % 0 /100 WBC (0); Platelet Count 425 Thou/mm3 (140-440); RDW Standard Deviation 44.1 fL (35.1-43.9); Red Blood Count 4.98 Miln/mm3 (4.50-5.90); White Blood Count 9.6 Thou/mm3 (3.8-10.6)
[2024-05-21 12:40] LABS: B-Type Natriuretic Peptide 29 pg/mL (0-100)
[2024-05-21 12:42] LABS: Alanine Aminotransferase 25 U/L (10-49); Albumin, Serum 4.4 gm/dL (3.4-4.8); Albumin/Globulin Ratio 1.2 (1.2-2.2); Alkaline Phosphatase 91 U/L (46-116); Anion Gap 10 (7-16); Aspartate Amino Transferase < 10 U/L (0-34); BUN/Creatinine Ratio 16 Ratio (12-20); Bilirubin,Total 0.3 mg/dL (0.3-1.2); Blood Urea Nitrogen 19 mg/dL (9-23); C-Reactive Protein 1.9 mg/dL (0.0-0.9); Calcium 9.6 mg/dL (8.3-10.6); Calcium (Corrected) 9.6 mg/dL (8.5-10.1); Chloride 105 mMol/L (98-107); Creatinine (Component) 1.2 mg/dL (0.6-1.3); Estimated Creatinine Clearance 54.3 mL/min (>60); Globulin 3.6 gm/dL (2.3-3.5); Glucose 80 mg/dL (74-106); Osmolality,Calculated 286 (275-295); Potassium 3.9 mMol/L (3.4-5.1); Sodium 143 mMol/L (136-145); Troponin I < 0.020 ng/mL (0.0-0.045); eGFR > 60 See Note
--- NOTE | 2024-05-21 13:33 | PD.EDADULT ---
ED General RME/HPI General Chief complaint: Fever Stated complaint: FEVER S/P SURGERY Time Seen by Provider: 05/21/24 11:34 Arrival date/time: 05/21/24 10:21 Limitations: no limitations RME / HPI RME / HPI narrative: 05/21/24 10:21 This is a 68-year-old male that comes in with complaints of recent left great toe amputation approximately 3 days ago. Per patient daughter wound looks like it is worsening. Patient also complains of dizziness and lightheadedness. Patient denies chest pain shortness of breath. Patient has a history of gangrene to his left great toe. I have greeted and performed a focused initial assessment of this patient. Initial appropriate labs ordered at this time. A comprehensive ED assessment and evaluation of the patient and analysis of all test and completion of medical decision making process will be conducted by additional ED provider. DR. HOOVER MAIN ED EVALUATION: 68 year old male presents to the Emergency Department after recent left great toe amputation on 05/17/[address] Avila and is now here stating his wound site looks like it is getting worse. Daughter concerned that the wound looks worse. No other symptoms reported at this time. Patient states that tomorrow he has his follow up appointment at the foot clinic. PMHx: Looking at his old records, he had a right MCA ischemic infarction 2020, with residual left hemiparesis. Social Hx: No tobacco, alcohol, or substance use. Related Data Previous Rx's ?Medication ?Instructions ?Recorded clindamycin HCl 300 mg capsule 300 mg PO TID cellulitis 7 days 05/18/24 #21 caps clopidogrel 75 mg tablet (Plavix) 75 mg PO QDAY 30 days #30 tabs 05/18/24 gabapentin 300 mg capsule 300 mg PO QDAY nerve pain 30 days 05/18/24 #30 caps cephalexin 500 mg capsule 500 mg PO QID #40 caps 05/21/24 gabapentin 300 mg capsule 300 mg PO BID #60 caps 05/21/24 Allergies Allergy/AdvReac Type Severity Reaction Status Date / Time No Known Allergies Allergy Verified 05/21/24 10:24 Review of Systems Review of Systems Systems Reviewed: All systems reviewed, normal except as documented Past Medical History Past Medical History NEUROLOGIC: Positive Cerebrovascular Accident CARDIAC: Positive Cardiac Disorders and Myocardial Infarction OTHER HISTORY: Positive Falls and Chicken Pox Social History SMOKING STATUS: Current every day smoker SUBSTANCE USE: does not use ALCOHOL: Never ED Exam General Limitations: Present no limitations General appearance: Present alert, in no apparent distress and other (chronically ill) Head Head exam: Present atraumatic, normocephalic and normal inspection Eye Eye exam: Present normal appearance, PERRL and EOMI ENT ENT exam: Present normal exam, normal oropharynx and mucous membranes moist Neck Neck exam: Present normal inspection, full ROM and trachea midline Chest Chest inspection: Present normal inspection and symmetric chest wall rise Respiratory Respiratory exam: Present normal lung sounds bilaterally Cardiovascular Cardiovascular exam: Present regular rate, normal rhythm and normal heart sounds Abdominal Exam Abdominal exam: Present soft and normal bowel sounds Extremities Exam Extremities exam: Present normal inspection and full ROM Expanded Lower Extremity Exam Top foot image:  1. Left great toe amputation. There is some gangrene in the surgical site, circular, about 3 mm thick, superficial. Inside the wound there is no exudate or puss but there is some sanguineous fluid. Back Exam Back exam: Present normal inspection and full ROM Neurological Exam Neurological exam: Present alert, oriented X3 and CN II-XII intact; Absent motor sensory deficit Psychiatric Psychiatric exam: Present normal affect and normal mood Skin Skin exam: Present warm, dry, intact and normal color Course Quality Measures none Orders Category Date Time Status EKG (ED ONLY) *Do not use* NOW Care 05/21/24 11:34 Active Wound Care NOW Care 05/21/24 14:01 Active EKG (ED Only) Stat Exams 05/21/24 11:34 Ordered XR chest 1V Stat Exams 05/21/24 11:34 Completed XR foot comp LT min 3V Stat Exams 05/21/24 11:34 Completed BNP [B-Type Natriuretic Peptide] Stat Lab 05/21/24 12:08 Completed CBC Stat Lab 05/21/24 12:08 Completed CBC Stat Lab 05/21/24 14:27 Completed CRP [C-Reactive Protein] Stat Lab 05/21/24 12:08 Completed Comprehensive Metabolic Panel Stat Lab 05/21/24 12:08 Completed Lactic Acid [Lactate (Lactic Acid)] Stat Lab 05/21/24 14:27 Completed Troponin I Stat Lab 05/21/24 12:08 Completed Wound Culture and Gram Stain Stat Lab 05/21/24 14:01 Ordered Morphine Inj Med 05/21/24 14:01 Discontinued 5 mg IM X1 ONE Ondansetron Odt [Zofran Odt] Med 05/21/24 14:01 Discontinued 4 mg PO X1 ONE Vital Signs Vital signs: Vital Signs Temperature 98.2 F 05/21/24 11:23 Pulse Rate 66 05/21/24 11:23 Respiratory Rate 16 05/21/24 11:23 Blood Pressure 125/67 05/21/24 11:23 Pulse Oximetry (%) 98 05/21/24 11:23 Oxygen Delivery Method Room Air 05/21/24 11:23 Procedures -ED EKG Interpretation #1: Date of EK05/21/24 Time of EK:33 Rate: 78 Interpretation: Interpreted by me Additional EKG comment: sinus rhythm, rate 78, no acute changes, no STEMI MDM Patient data External records reviewed:: [facility] previous records (Reviewed last admission discharge dated 05/18/24, patient admitted for the following: Cellulitis of left foot) Clinical information provided by:: patient Social determinants that could affect healthcare access:: none Patient has the following chronic illnesses:: PMHx: Looking at his old records, he had a right MCA ischemic infarction 2020, with residual left hemiparesis. Recent left great toe amputation on 05/17/[address] Avila. How is presenting disease/condition affected by chronic disease/condition?: exacerbated by Evaluation data The following diagnostics were reviewed and interpreted by me:: lab results, radiology exam(s) and EKG tracing(s) Lab and/or radiology exams considered but not ordered:: none Interpretation Summary: Procedure(s): XR foot comp LT min 3V Accession Number(s): [id number] cc: Leonidas Hobbs MD; Agustina Tai NP~ Examination: Foot, left, 3 views Technique: AP, oblique, lateral views foot, 3 views Date and time of exam: 05/21/2024, 11:49 AM COMPARISON: 05/16/2024 Indication, left foot plain. FINDINGS: Interval amputation of the first digit distal phalanx and distal portion of the first digit digit proximal phalanx with associated soft tissue defect. No evidence of foreign body. No other bony abnormality seen. IMPRESSION: Interval first digit amputation as above. No other focal abnormality seen Dictated By: Leonidas Hobbs MD Procedure(s): XR chest 1V Accession Number(s): [id number] cc: Leonidas Hobbs MD; Agustina Tai NP~ Exam: Chest 1 view, AP Date and time of exam: 05/21/2024, 11:46 AM INDICATION: Dizziness COMPARISON: 06/17/2020 Findings: Normal heart size. No mediastinal adenopathy. No acute fracture No pulmonary edema or pneumonia. Impression: No active disease. Dictated By: Leonidas Hobbs MD Medications Medications considered but not ordered:: none Medication administrations:: Medication Administration History Discontinued Medications Morphine Sulfate (Morphine Sulf Inj 10 Mg/Ml Vial) 5 mg IM X1 ONE Stop: 05/21/24 14:02 Last Admin: 05/21/24 14:18 Dose: 5 mg Documented By: XAVIER Ondansetron HCl (Ondansetron Odt 4 Mg Tabrap) 4 mg PO X1 ONE; Protocol Stop: 05/21/24 14:02 Last Admin: 05/21/24 14:16 Dose: 4 mg Documented By: XAVIER see above if any Consultations Consultation(s) initiated? (list below): No Diagnosis Differential Diagnosis ED Complaint MDM: sepsis, cellulitis, wound infection Most likely diagnosis given after review of the tests above:: Left great toe amputation Left great toe open wound Admission Indicated Admission indicated?: not indicated Explain why admission is indicated or not indicated:: Patient has no emergent abnormalities on his studies and can be managed on an outpatient basis. Admission Request Was there a request for admission?: No Disposition Plan Disposition Plan: Discharge Discharge Attestation Discharge Attestation: The patient and all family members were given an opportunity to ask questions and understood the discharge instructions. Discharge instructions specifically effects, indications for sooner follow up or return to the emergency department, and the expected course of current diagnosis. Patient condition: Stable Medical Decision Making MDM Narrative MDM Narrative: I, Anna Broussard, am scribing for and in the presence of Dr. Hoover. Differential Diagnosis Differential Diagnosis: sepsis, cellulitis, wound infection Lab Data 05/21/24 14:27 05/21/24 12:08 Labs: Lab Results 05/21/24 05/21/24 Range/Units 12:08 14:27 WBC 9.6 9.4 (3.8-10.6) Thou/mm3 RBC 4.98 4.71 (4.50-5.90) Miln/mm3 Hgb 14.6 D 13.9 (13.5-16.0) g/dL Hct 45.0 42.5 (41.0-53.0) % MCV 90 90 (80-100) fL MCH 29.3 29.5 (25.0-35.0) pg MCHC 32.4 32.7 (31.0-37.0) g/dl RDW Std Deviation 44.1 H 43.6 (35.1-43.9) fL Plt Count 425 D 403 (140-440) Thou/mm3 Neut % (Auto) 66 61 (37-80) % Lymph % (Auto) 13 16 (10-50) % [place] % (Auto) 19 H 19 H (0-12) % Eos % (Auto) 1 2 (0-10) % Baso % (Auto) 1 1 (0-2.5) % Neut # (Auto) 6.3 5.8 (1.8-7.7) Thou/mm3 Lymph # (Auto) 1.3 1.5 (1.0-4.8) Thou/mm3 [place] # (Auto) 1.8 H 1.8 H (0.0-0.8) Thou/mm3 Eos # (Auto) 0.1 0.2 (0.0-0.5) Thou/mm3 Baso # (Auto) 0.1 0.1 (0.0-0.2) Thou/mm3 Immature Gran # (Auto) 0.05 H 0.06 H (0.00-0.00) Thou/mm3 Absolute Nucleated RBC 0.00 0.00 (0.00-0.00) Thou/mm3 Immature Gran % 1 H 1 H (0-0) % Nucleated RBC % 0 0 (0) /100 WBC Sodium 143 (136-145) mMol/L Potassium 3.9 (3.4-5.1) mMol/L Chloride 105 (98-107) mMol/L Carbon Dioxide 28.0 (20.0-31.0) mMol/L Anion Gap 10 (7-16) BUN 19 (9-23) mg/dL Creatinine 1.2 (0.6-1.3) mg/dL Estim Creat Clear Calc 54.3 L (>60) mL/min eGFR > 60 (60 - ) See Note BUN/Creatinine Ratio 16 (12-20) Ratio Glucose 80 (74-106) mg/dL Calculated Osmolality 286 (275-295) Lactic Acid 1.9 (0.4-2.0) mMol/L Calcium 9.6 (8.3-10.6) mg/dL Corrected Calcium 9.6 (8.5-10.1) mg/dL Total Bilirubin 0.3 (0.3-1.2) mg/dL AST < 10 (0-34) U/L ALT 25 (10-49) U/L Alkaline Phosphatase 91 (46-116) U/L Troponin I < 0.020 (0.0-0.045) ng/mL C-Reactive Prot, Quant 1.9 H (0.0-0.9) mg/dL B-Natriuretic Peptide 29 (0-100) pg/mL Total Protein 8.0 (5.7-8.2) gm/dL Albumin 4.4 (3.4-4.8) gm/dL Globulin 3.6 H (2.3-3.5) gm/dL Albumin/Globulin Ratio 1.2 (1.2-2.2) Discharge Plan Plan Patient Disposition: HOME (Self Care) Patient condition on transfer: Stable Prescriptions/Referrals Prescriptions/Med Rec: New gabapentin 300 mg capsule 300 mg PO BID Qty: 60 0RF cephalexin 500 mg capsule 500 mg PO QID Qty: 40 0RF No Action clindamycin HCl 300 mg capsule 300 mg PO TID 7 Days Qty: 21 0RF gabapentin 300 mg capsule 300 mg PO QDAY 30 Days Qty: 30 0RF Rx Instructions: Start with 300 mg once a day, can uptitrate to twice a day and then three times a day. clopidogrel [Plavix] 75 mg Tablet 75 mg PO QDAY 30 Days Qty: 30 0RF Referrals: Cherry Mclaughlin FNP-C [Primary Care Provider] - In 1 week Problem List Clinical Impression: Amputation of left great toe, Open wound of left great toe Patient/Caregiver Discharge Instructions Additional Instructions: Take Tylenol 500 mg milligrams 2 tablets every 6 hours as for pain. Also take at the same time as taking Tylenol Advil gelcaps 200 mg 2 gelcaps every 6 hours for pain Print Language: New Zealander Stand Alone Forms: Sofy Award Info., Patient Portal Info Letter
[2024-05-21] MEDS: ONDANSETRON ODT 4 MG TABRAP PO (14:16)
[2024-05-21] MEDS: MORPHINE SULF INJ 10 MG/ML VIAL 5 MG IM (14:18)
[2024-05-21 14:31] LABS: Lactate (Lactic Acid) 1.9 mMol/L (0.4-2.0)
[2024-05-21 14:38] LABS: Basophils # (Auto) 0.1 Thou/mm3 (0.0-0.2); Basophils % (Auto) 1 % (0-2.5); Eosinophils # (Auto) 0.2 Thou/mm3 (0.0-0.5); Eosinophils % (Auto) 2 % (0-10); Hematocrit 42.5 % (41.0-53.0); Hemoglobin 13.9 g/dL (13.5-16.0); Immature Granulocytes % (Auto) 1 % (0-0); Immature Granulocytes Auto 0.06 Thou/mm3 (0.00-0.00); Lymphocytes # (Auto) 1.5 Thou/mm3 (1.0-4.8); Lymphocytes % (Auto) 16 % (10-50); Mean Corpuscular HGB Conc 32.7 g/dl (31.0-37.0); Mean Corpuscular Hemoglobin 29.5 pg (25.0-35.0); Mean Corpuscular Volume 90 fL (80-100); Monocytes # (Auto) 1.8 Thou/mm3 (0.0-0.8); Monocytes % (Auto) 19 % (0-12); Neutrophils # (Auto) 5.8 Thou/mm3 (1.8-7.7); Neutrophils % (Auto) 61 % (37-80); Nucleated Red Blood Cell % 0 /100 WBC (0); Platelet Count 403 Thou/mm3 (140-440); RDW Standard Deviation 43.6 fL (35.1-43.9); Red Blood Count 4.71 Miln/mm3 (4.50-5.90); White Blood Count 9.4 Thou/mm3 (3.8-10.6)
[2024-05-21 14:54] VITALS: BP 128/90; PULSE 72; RESP 16; TEMP 36.9; O2SAT 95
== END 2024-05-21 15:53 | disposition home or self-care (01) ==
PROVIDERS: Nurse Practitioner Family; Emergency Provider Family Medicine; PCP Nurse Practitioner Family
DX: S91.102A Unspecified open wound of left great toe without damage to nail, initial encounter (principal)
CPT/HCPCS: 36415; 71045; 73630; 80053; 83605; 83880; 84484; 85025; 86140; 87070; 87077; 87186; 87205; 93005; 96372; 99284; J2270; Q0162

== ENCOUNTER → 2024-05-24 | Outpatient (CLI) | payer MEDICARE, SELFPAY | END | disposition home or self-care (01) | PROVIDERS: PCP Internal Medicine; Referring Provider Internal Medicine; Visit Provider Student in an Organized Health Care Education/Training Program | DX: S98.112A Complete traumatic amputation of left great toe, initial encounter (principal); X58.XXXA Exposure to other specified factors, initial encounter; I10 Essential (primary) hypertension; Z72.0 Tobacco use; J44.9 Chronic obstructive pulmonary disease, unspecified; F41.8 Other specified anxiety disorders; E11.40 Type 2 diabetes mellitus with diabetic neuropathy, unspecified; I73.9 Peripheral vascular disease, unspecified | CPT/HCPCS: 11042; 99213; A9270; G0463 ==

== ENCOUNTER → 2024-05-31 | Outpatient (CLI) | payer MEDICARE, SELFPAY ==
--- NOTE | 2024-05-31 11:15 | PC.SS ---
ASW was contacted by patient's niece, Vi , calling for home health orders to be sent to [facility]. Per previous chart history no home health orders were established on recent visit. SS contacted [facility] to identify if patient's clinicals can be sent over to them to connect the patient for services. Per [facility] staff, the patient would need to follow up with their PCP to initiate home health orders for patient to continue with services as he has already previously been discharged. SS left call back number with Vi to update on status.
== END | disposition home or self-care (01) ==
LOC: SWHD 08:42
PROVIDERS: PCP Internal Medicine; Referring Provider Internal Medicine; Visit Provider Student in an Organized Health Care Education/Training Program
DX: I96 Gangrene, not elsewhere classified (principal); S98.112A Complete traumatic amputation of left great toe, initial encounter; X58.XXXA Exposure to other specified factors, initial encounter; Z72.0 Tobacco use; J44.9 Chronic obstructive pulmonary disease, unspecified; F41.8 Other specified anxiety disorders; E11.40 Type 2 diabetes mellitus with diabetic neuropathy, unspecified; I73.9 Peripheral vascular disease, unspecified
CPT/HCPCS: 11042; A9270

== ENCOUNTER → 2024-06-07 | Outpatient (CLI) | payer MEDICARE, SELFPAY | END | disposition home or self-care (01) | LOC: SWHD 08:39 | PROVIDERS: PCP Internal Medicine; Referring Provider Internal Medicine; Visit Provider Student in an Organized Health Care Education/Training Program | DX: I96 Gangrene, not elsewhere classified (principal); S98.112A Complete traumatic amputation of left great toe, initial encounter; X58.XXXA Exposure to other specified factors, initial encounter; Z75.0 Medical services not available in home; J44.9 Chronic obstructive pulmonary disease, unspecified; F41.8 Other specified anxiety disorders; E11.40 Type 2 diabetes mellitus with diabetic neuropathy, unspecified | CPT/HCPCS: 11044; A9270 ==

== ENCOUNTER → 2024-06-14 | Outpatient (CLI) | payer MEDICARE, SELFPAY | END | disposition home or self-care (01) | LOC: SWHD 09:04 | PROVIDERS: PCP Internal Medicine; Referring Provider Internal Medicine; Visit Provider Student in an Organized Health Care Education/Training Program | DX: I96 Gangrene, not elsewhere classified (principal); S98.112A Complete traumatic amputation of left great toe, initial encounter; X58.XXXA Exposure to other specified factors, initial encounter; Z75.0 Medical services not available in home; J44.9 Chronic obstructive pulmonary disease, unspecified; F41.8 Other specified anxiety disorders; E11.40 Type 2 diabetes mellitus with diabetic neuropathy, unspecified | CPT/HCPCS: 11042; A9270 ==

== ENCOUNTER → 2024-06-21 | Outpatient (CLI) | payer MEDICARE, SELFPAY | END | disposition home or self-care (01) | LOC: SWHD 14:36 | PROVIDERS: PCP Internal Medicine; Referring Provider Internal Medicine; Visit Provider Student in an Organized Health Care Education/Training Program | DX: I96 Gangrene, not elsewhere classified (principal); S98.112A Complete traumatic amputation of left great toe, initial encounter; X58.XXXA Exposure to other specified factors, initial encounter; Z75.0 Medical services not available in home; J44.9 Chronic obstructive pulmonary disease, unspecified; F41.8 Other specified anxiety disorders; E11.40 Type 2 diabetes mellitus with diabetic neuropathy, unspecified | CPT/HCPCS: 11042; A9270 ==

== ENCOUNTER → 2024-06-28 | Outpatient (CLI) | payer MEDICARE, SELFPAY | END | disposition home or self-care (01) | LOC: SWHD 08:14 | PROVIDERS: PCP Internal Medicine; Referring Provider Internal Medicine; Visit Provider Surgery | DX: I96 Gangrene, not elsewhere classified (principal); T81.89XA Other complications of procedures, not elsewhere classified, initial encounter; Z75.0 Medical services not available in home; J44.9 Chronic obstructive pulmonary disease, unspecified; F41.8 Other specified anxiety disorders; E11.40 Type 2 diabetes mellitus with diabetic neuropathy, unspecified | CPT/HCPCS: 11043; A9270 ==

== ENCOUNTER → 2024-07-12 | Outpatient (CLI) | payer MEDICARE, SELFPAY | END | disposition home or self-care (01) | LOC: SWHD 14:11 | PROVIDERS: PCP Internal Medicine; Referring Provider Internal Medicine; Visit Provider Student in an Organized Health Care Education/Training Program | DX: I96 Gangrene, not elsewhere classified (principal); T81.89XA Other complications of procedures, not elsewhere classified, initial encounter; J44.9 Chronic obstructive pulmonary disease, unspecified; F41.8 Other specified anxiety disorders; E11.40 Type 2 diabetes mellitus with diabetic neuropathy, unspecified; I10 Essential (primary) hypertension; F41.9 Anxiety disorder, unspecified; F17.200 Nicotine dependence, unspecified, uncomplicated; I73.9 Peripheral vascular disease, unspecified | CPT/HCPCS: 11042; A9270 ==

== ENCOUNTER → 2024-08-11 | Outpatient (CLI) | payer MEDICARE, SELFPAY | END | disposition home or self-care (01) | LOC: SWHD 13:20 | PROVIDERS: PCP Internal Medicine; Referring Provider Internal Medicine; Visit Provider Student in an Organized Health Care Education/Training Program | DX: I96 Gangrene, not elsewhere classified (principal); T81.89XA Other complications of procedures, not elsewhere classified, initial encounter; S98.132A Complete traumatic amputation of one left lesser toe, initial encounter; X58.XXXA Exposure to other specified factors, initial encounter; J44.9 Chronic obstructive pulmonary disease, unspecified; F41.8 Other specified anxiety disorders; E11.40 Type 2 diabetes mellitus with diabetic neuropathy, unspecified; I10 Essential (primary) hypertension; F41.9 Anxiety disorder, unspecified; F17.200 Nicotine dependence, unspecified, uncomplicated | CPT/HCPCS: 11042; A9270 ==

== ENCOUNTER → 2024-09-13 | Outpatient (CLI) | payer MEDICARE, SELFPAY ==
--- NOTE | 2024-09-13 15:01 | XR_ITS ---
Examination: Foot, left, 3 views Technique: AP, oblique, lateral views foot, 3 views Date and time of exam: September 13, 2024 1501 hours INDICATIONS: Status post first digit amputation 2 months ago. FINDINGS: Severe osteopenia Mild irregularity at the amputation end of the proximal phalanx first digit No fracture No foreign body IMPRESSION: Status post amputation first digit at the level of the proximal aspect proximal phalanx No fractures Right for early osteomyelitis amputated first digit is a clinical consideration, suggest MRI foot without contrast follow-up
== END | disposition home or self-care (01) ==
PROVIDERS: PCP Internal Medicine; Referring Provider Student in an Organized Health Care Education/Training Program; Visit Provider Student in an Organized Health Care Education/Training Program
DX: M86.8X7 Other osteomyelitis, ankle and foot (principal); M86.9 Osteomyelitis, unspecified; Z89.412 Acquired absence of left great toe
CPT/HCPCS: 73630